=== PATIENT | male | born 1995 | race Caucasian/White ===

== ENCOUNTER 2022-04-02 01:53 | Emergency (ER) | payer MEDICAID ==
[~2022-04-02] VITALS: Ht 182.9 cm; Wt 65.1 kg
[2022-04-02 02:11] VITALS: BP 135/64
== END 2022-04-02 02:27 | disposition home or self-care (01) ==
LOC: ER 02:09
DX: Z00.00 Encounter for general adult medical examination without abnormal findings (principal)
CPT/HCPCS: 99281